=== PATIENT | female | born 1950 | race Two or more races ===

== ENCOUNTER 2020-02-24 05:52 | Day surgery (SDC) | payer OTHER ==
[~2020-02-24] VITALS: Ht 160 cm; Wt 81.6 kg
[~2020-02-24 05:52] MED LIST: ABILIFY5 MG PO; AMBIEN10 MG PO; ATIVAN1 MG PO; ATIVAN2 MG PO; CITALOPRAM HBR20 MG PO; COZAAR50 MG PO; DILTIAZEM ER120 M3; DILTIAZEM ER120 MG PO; DILTIAZEM HCL120 MG PO; FAMOTIDINE20 MG PO; HYDROCHLOROTHIA25 MG; HYOSCYAMINE0.125 M1 SL; HYZAAR 50-12.1 UDTAB PO; HYZAAR 50/12.51 TAB PO; LEVAQUIN750 MG PO; LEVOTHYROXINE25 MCG; LEVOTHYROXINE25 MCG PO; LORAZEPAM2 MG PO; MICRO-K 1010 MEQ PO; NAPROXEN500 MG PO; POM (MEDICAMENTO EN PO; PRISTIQ; PROVENTIL3 ML/2.5 M IH; SYNTHROID50 MCG PO; TUSSI-PRES LIQ120 ML PO
[2020-02-25] MEDS ORDERED: COZAAR25 MG PO (08:12)
== END 2020-02-25 08:00 | disposition home or self-care (01) ==
LOC: CIR.AMB 05:52 → SURH 12:27 → O/R 12:27 → CIR.AMB 12:27 → SURH 13:38 → O/R 13:38 → CIR.AMB 02-25 08:00 → SURH 02-25 10:41 → O/R 02-25 10:41
PROVIDERS: ATTEND Specialist
DX: C50.812 Malignant neoplasm of overlapping sites of left female breast (principal); Z17.0 Estrogen receptor positive status [ER+]

== ENCOUNTER 2021-07-15 10:34 | Emergency (ER) | payer OTHER ==
[~2021-07-15] VITALS: Ht 160 cm; Wt 77.1 kg
[~2021-07-15 10:34] MED LIST changes: +COZAAR25 MG PO
[2021-07-15] MEDS ORDERED: CITALOPRAM20 MG/10 M PO (10:53)
[2021-07-15] MEDS ORDERED: LETROZOLE2.5 MG PO (10:54)
[2021-07-15] MEDS ORDERED: AMIODARONE HCL100 MG PO (10:55)
[2021-07-15] MEDS ORDERED: GLUMETZA500 MG (10:55)
== END 2021-07-15 13:00 | disposition home or self-care (01) ==
LOC: ER 10:34
DX: S00.83XA Contusion of other part of head, initial encounter (principal); S20.214A Contusion of middle front wall of thorax, initial encounter; R07.89 Other chest pain; W18.09XA Striking against other object with subsequent fall, initial encounter; Y93.89 Activity, other specified; Y92.091 Bathroom in other non-institutional residence as the place of occurrence of the external cause; Y99.8 Other external cause status

== ENCOUNTER 2023-10-17 09:35 | Inpatient (IN) | payer OTHER ==
[~2023-10-17] VITALS: Ht 160 cm; Wt 72.6 kg
[~2023-10-17 09:35] MED LIST changes: +AMIODARONE HCL100 MG PO; +CITALOPRAM20 MG/10 M PO; +GLUMETZA500 MG; +LETROZOLE2.5 MG PO
--- NOTE | 2023-10-17 10:17 | NUR ---
SE RECIBE PACIENET ALERTA Y ORIENTADA X3 ACUDE A LA VIJAYA DE EMERGENCINAS POR DOLOR ADBOMINAL QUE IRRADIA HACIA EL AREA PELVICO, NAUSEAS. SE OBSERVA ABDOMEN DISTENDIDO Y SE PALPA MASA EN ABDOMEN DE MAC LADO IZQ. SE MIDEN S/V Y SE UBICA.
[2023-10-17] MEDS ORDERED: METHYLPREDNISOLONE SOD SUCC 40 MG VIAL IV ONE (11:00)
[2023-10-17] MEDS ORDERED: DIPHENHYDRAMINE HCL 50 MG/ML VIAL 1ML IV ONE (11:00)
[2023-10-17] MEDS ORDERED: FAMOtidine 10 MG/ML (4ML VIAL) IV ONE (11:00)
[2023-10-17] MEDS ORDERED: MORPHINE SULFATE 2 MG/ML CARTRIDGE IV ONE (11:00)
--- NOTE | 2023-10-17 12:18 | NUR ---
PACIENTE ALERTA Y ORIENTADA X3, EVALUADA POR LA DRA. MONREAL. RN AGUIAR EDUCA A PACIENTE SOBRE PROCEDIMIENTO A LLEVAR A CABO, VERBALIZA ENTENDER. SE EJECUTAN ORDENES BAJO MEDIDAS ASEPTICAS.
[2023-10-17 12:24] LABS: HEMATOCRIT 37.9 % (36.0-45.00); HEMOGLOBIN 12.8 g/dL (12.0-15.00); MEAN CELL VOLUME 82.2 fL (80.00-100.00); MEAN CORPUSCULAR HEMOGLOBIN 27.8 pg (27.00-32.0); MEAN CORPUSCULAR HGB CONC 33.8 g/dl (32.0-36.0); PLATELET COUNT 289 K/uL (150-450); RED BLOOD COUNT 4.61 M/uL (4.00-6.00); RED CELL DISTRIBUTION WIDTH 13.6 % (11.5-14.5)
[2023-10-17 12:57] LABS: ALBUMIN 3.1 gm/dL (3.4-5.0); BILIRUBIN TOTAL 0.58 mg/dL (0.3-1.2); CALCIUM 9.3 mg/dL (8.5-10.1); CREATININE SERUM 0.67 mg/dL (0.55-1.02); GFR 86.52; GLOBULINA 4.2 G/DL (2.4-3.5); POTASSIUM 3.58 mEq/L (3.5-5.1); TOTAL PROTEIN 7.3 gm/dL (6.4-8.2)
[2023-10-17 13:39] LABS: PH,URINE 5.5 (5.0-8.0); URINE APPEARANCE Clear; URINE BILIRRUBIN Negative (NEGATIVE); URINE BLOOD Negative; URINE COLOR Yellow; URINE LEUKOCYTE Negative; URINE NITRATE Negative; URINE PROTEIN Negative (NEGATIVE); URINE UROBILINOGEN 0.2 E.U./dl
[2023-10-17 13:43] LABS: URINE BACTERIA 25.1 uL (0.0-1933); URINE EPITHELIAL CELLS 3.5 uL (0.0-38.8); URINE WBC 5.3 uL (0.0-23.2)
[2023-10-17] MEDS ORDERED: INSULIN REGULAR, HUMAN 1,000 UNIT/10 ML UNITS SUBCUTANEO ONE ×2 (13:45→14:00)
[2023-10-17 13:49] LABS: URINE GLUCOSE >=1000 MG/DL (NEGATIVE); URINE RBC 0.4 uL (0.0-20.8)
--- NOTE | 2023-10-17 15:35 | NUR ---
SE RECIBE PTE ALERTA Y ORIENTADA X3 EN CAMA CON BARANDAS ELEVADAS. SE ORIENTA SOBRE CONTINUIDAD DE [facility]. PENDIENTE LECTURA DE CT. PTE CON SONDA URINARIA BAJANDO A GRAVEDAD.
[2023-10-17 18:48] LABS: ALBUMIN 3.6 gm/dL (3.4-5.0); BILIRUBIN TOTAL 0.32 mg/dL (0.3-1.2); BILIRUBIN,CONJUGATED 0.11 mg/dL (0.0-0.2); BILIRUBIN,UNCONJUGATED 0.21 mg/dL (0.0-0.6); TOTAL PROTEIN 8.5 gm/dL (6.4-8.2)
[2023-10-17] MEDS ORDERED: 0.9 % SODIUM CHLORIDE 1,000 ML IV SCH (20:00)
[2023-10-17] MEDS ORDERED: ONDANSETRON HCL 4 MG in 0.9 % SODIUM CHLORIDE 50 ML IV PRN (20:15)
[2023-10-17] MEDS ORDERED: DEXTROSE 50 % IN WATER 0.5 G/ML DISP.SYRIN IV PRN (20:15)
[2023-10-17] MEDS ORDERED: ACETAMINOPHEN 500 MG GEL..CAP PO PRN (20:15)
[2023-10-17] MEDS ORDERED: INSULIN LISPRO 1,000 UNIT/10 ML UNITS SUBCUTANEO PRN (20:15)
[2023-10-17] MEDS ORDERED: HYOSCYAMINE SULFATE 0.125 MG TAB.SUBL PO ONE (20:15)
[2023-10-17] MEDS ORDERED: LORazepam 1 MG TABLET PO SCH (21:00)
[2023-10-17 22:01] LABS: INR 1.04; PARTIAL THROMBOPLASTIN TIME 28.4 SECONDS (22.0-34.0); PROTHROMBIN TIME 10.9 SECONDS (9.0-11.5)
[2023-10-18] MEDS ORDERED: CEFTRIAXONE SODIUM 2,000 MG in 0.9 % SODIUM CHLORIDE 100 ML IV SCH (09:00)
[2023-10-18] MEDS ORDERED: FAMOTIDINE/PF 20 MG in 0.9 % SODIUM CHLORIDE 8 ML IV PUSH SCH (09:00)
[2023-10-19] MEDS ORDERED: KETOROLAC TROMETHAMINE 30 MG VIAL IV SCH (12:01)
[2023-10-20] MEDS ORDERED: ENALAPRILAT DIHYDRATE 1.25 MG/ML VIAL IV ONE ×2 (17:53→18:45)
[2023-10-21] MEDS ORDERED: LOSARTAN POTASSIUM 50 MG TABLET PO SCH (11:21)
[2023-10-21] MEDS ORDERED: ENALAPRILAT DIHYDRATE 1.25 MG/ML VIAL IV PRN (15:15)
[2023-10-21] MEDS ORDERED: AMLODIPINE BESYLATE 10 MG TABLET PO STA (15:17)
[2023-10-22] MEDS ORDERED: AMLODIPINE BESYLATE 10 MG TABLET PO SCH (09:00)
== END 2023-10-22 13:19 | disposition home or self-care (01) | DRG 439 ==
LOC: ER 09:35 → MEDI 20:12
PROVIDERS: General Practice; ADMIT Internal Medicine; ATTEND Internal Medicine
PROC: BW21YZZ Computerized Tomography (CT Scan) of Abdomen and Pelvis using Other Contrast (ICD-10-PCS; principal; 2023-10-17)
PROC: BF37YZZ Magnetic Resonance Imaging (MRI) of Pancreas using Other Contrast (ICD-10-PCS; 2023-10-17)
PROC: BW40ZZZ Ultrasonography of Abdomen (ICD-10-PCS; 2023-10-19)
DX: K86.2 Cyst of pancreas (principal); N39.0 Urinary tract infection, site not specified; D13.6 Benign neoplasm of pancreas; I10 Essential (primary) hypertension

== ENCOUNTER 2024-01-21 10:43 | Inpatient (IN) | payer OTHER ==
[~2024-01-21] VITALS: Ht 157.5 cm; Wt 72.6 kg
--- NOTE | 2024-01-21 10:50 | NUR ---
PACIENTE ALERTA Y ORIENTADA X 3. REFIERE DOLOR CORPORAL, DE EDSON, DE PECHO Y CANSANCIO DESDE RICHARD.
[2024-01-21] MEDS ORDERED: DILTIAZEM HCL 25 MG/5 ML VIAL IV ONE (11:15)
[2024-01-21 12:11] LABS: HEMATOCRIT 39.3 % (36.0-45.00); HEMOGLOBIN 13.5 g/dL (12.0-15.00); MEAN CELL VOLUME 81.8 fL (80.00-100.00); MEAN CORPUSCULAR HEMOGLOBIN 28.2 pg (27.00-32.0); MEAN CORPUSCULAR HGB CONC 34.5 g/dl (32.0-36.0); PLATELET COUNT 254 K/uL (150-450); RED CELL DISTRIBUTION WIDTH 13.6 % (11.5-14.5)
--- NOTE | 2024-01-21 12:15 | NUR ---
PTE EVALUADA POR EL SONU JULES QUIEN ORDENA TRATMAIENTO LA CUAL SE EJECUTA SE CONCETA EN MONITOR CARDIACO Y OXIEMTRIA ,SE LE ADMISTRA CARDIACEM 25 MG IV . SE MANTIENE BAJO OBSERVACION.
[2024-01-21 12:16] LABS: PH,URINE 5.5 (5.0-8.0); URINE APPEARANCE Clear; URINE BILIRRUBIN Negative (NEGATIVE); URINE BLOOD Negative; URINE COLOR Yellow; URINE LEUKOCYTE Small; URINE NITRATE Negative; URINE PROTEIN 30 (NEGATIVE)
[2024-01-21 12:20] LABS: URINE BACTERIA 99.5 uL (0.0-1933); URINE EPITHELIAL CELLS 10.5 uL (0.0-38.8); URINE RBC 2.5 uL (0.0-20.8); URINE WBC 163.6 uL (0.0-23.2)
[2024-01-21 12:24] LABS: URINE GLUCOSE >=1000 MG/DL (NEGATIVE)
[2024-01-21 12:55] LABS: INR 1.06; PARTIAL THROMBOPLASTIN TIME 26.9 SECONDS (22.0-34.0); PROTHROMBIN TIME 11.1 SECONDS (9.0-11.5)
[2024-01-21 13:39] LABS: CALCIUM 8.9 mg/dL (8.5-10.1); CREATININE SERUM 0.69 mg/dL (0.55-1.02); GFR 83.63; POTASSIUM 3.75 mEq/L (3.5-5.1)
[2024-01-21 13:51] LABS: DIGOXIN 0.2 ng/ml (0.8-2.0)
[2024-01-21] MEDS ORDERED: APIXABAN 5 MG TABLET PO SCH ×2 (18:13→19:06)
[2024-01-21] MEDS ORDERED: 0.9 % SODIUM CHLORIDE 1,000 ML IV SCH (18:15)
[2024-01-21] MEDS ORDERED: DILTIAZEM HCL 125 MG in 0.9 % SODIUM CHLORIDE 100 ML IV SCH (18:15)
[2024-01-21] MEDS ORDERED: CLONAZEPAM 1 MG TABLET PO SCH (18:20)
[2024-01-21] MEDS ORDERED: DEXTROSE 50 % IN WATER 0.5 G/ML DISP.SYRIN IV PRN (18:30)
[2024-01-21] MEDS ORDERED: ACETAMINOPHEN 500 MG GEL..CAP PO PRN (18:30)
[2024-01-21] MEDS ORDERED: INSULIN LISPRO 1,000 UNIT/10 ML UNITS SUBCUTANEO PRN (18:30)
[2024-01-21 21:15] LABS: CALCIUM 9.5 mg/dL (8.5-10.1); CREATININE SERUM 0.73 mg/dL (0.55-1.02); GFR 78.37; POTASSIUM 3.43 mEq/L (3.5-5.1)
[2024-01-22] MEDS ORDERED: METOPROLOL TARTRATE 25 MG TABLET PO SCH (01:00)
[2024-01-22] MEDS ORDERED: APIXABAN 5 MG TABLET PO SCH (09:00)
[2024-01-22] MEDS ORDERED: ATORVASTATIN CALCIUM 40 MG TABLET PO SCH (09:00)
[2024-01-22] MEDS ORDERED: FAMOTIDINE/PF 20 MG in 0.9 % SODIUM CHLORIDE 8 ML IV PUSH SCH (09:00)
[2024-01-22] MEDS ORDERED: POTASSIUM CHLORIDE 10 MEQ CAPSULE PO NR (10:15)
[2024-01-22] MEDS ORDERED: ENALAPRILAT DIHYDRATE 1.25 MG/ML VIAL IV PRN (22:00)
[2024-01-23 07:02] LABS: CALCIUM 8.6 mg/dL (8.5-10.1); CREATININE SERUM 0.62 mg/dL (0.55-1.02); GFR 94.62; POTASSIUM 3.7 mEq/L (3.5-5.1)
[2024-01-23] MEDS ORDERED: FAMOTIDINE/PF 20 MG in 0.9 % SODIUM CHLORIDE 8 ML IV PUSH SCH (21:00)
== END 2024-01-23 18:49 | disposition home or self-care (01) | DRG 310 ==
LOC: ER 10:43 → ICU-2 18:44 → ICU 18:44
PROVIDERS: Emergency Medicine; General Practice; ADMIT Internal Medicine; ATTEND Internal Medicine
PROC: B24BZZZ Ultrasonography of Heart with Aorta (ICD-10-PCS; principal; 2024-01-21)
DX: I48.20 Chronic atrial fibrillation, unspecified (principal); I11.9 Hypertensive heart disease without heart failure; E78.5 Hyperlipidemia, unspecified; E03.9 Hypothyroidism, unspecified

== ENCOUNTER 2024-09-14 11:17 | Emergency (ER) | payer OTHER ==
[~2024-09-14] VITALS: Ht 160 cm; Wt 76.2 kg
[2024-09-14] MEDS ORDERED: TRAMADOL HCL 50 MG TABLET PO ONE (16:30)
[2024-09-14 17:02] LABS: HEMOGLOBIN 13.4 g/dL (12.0-15.00); MEAN CELL VOLUME 80.9 fL (80.00-100.00); MEAN CORPUSCULAR HEMOGLOBIN 27.8 pg (27.00-32.0); MEAN CORPUSCULAR HGB CONC 34.3 g/dl (32.0-36.0); PLATELET COUNT 321 K/uL (150-450); RED BLOOD COUNT 4.81 M/uL (4.00-6.00); RED CELL DISTRIBUTION WIDTH 14.4 % (11.5-14.5)
[2024-09-14 17:23] LABS: INR 1.02; PARTIAL THROMBOPLASTIN TIME 25.3 SECONDS (22.0-34.0); PROTHROMBIN TIME 11.1 SECONDS (9.0-11.5)
[2024-09-14 17:29] LABS: ALBUMIN 3.6 gm/dL (3.4-5.0); BILIRUBIN TOTAL 0.35 mg/dL (0.3-1.2); CALCIUM 9.5 mg/dL (8.5-10.1); CREATININE SERUM 0.8 mg/dL (0.55-1.02); GFR 70.31; GLOBULINA 4.4 G/DL (2.4-3.5); POTASSIUM 3.27 mEq/L (3.5-5.1)
[2024-09-14 18:05] LABS: PH,URINE 5.5 (5.0-8.0); URINE APPEARANCE Clear; URINE BILIRRUBIN Negative (NEGATIVE); URINE BLOOD Negative; URINE COLOR Dark Yellow; URINE KETONE Negative (NEGATIVE); URINE LEUKOCYTE Negative; URINE NITRATE Negative; URINE PROTEIN Trace (NEGATIVE)
[2024-09-14 18:11] LABS: URINE EPITHELIAL CELLS 53.8 uL (0.0-38.8); URINE WBC 27.2 uL (0.0-23.2)
[2024-09-14 18:44] LABS: URINE CAST 0.73 uL (0.0-1.40); URINE GLUCOSE 500 MG/DL (NEGATIVE)
[2024-09-14 19:07] LABS: URINE CRYSTALS MANY /HPF
== END 2024-09-14 22:01 | disposition home or self-care (01) ==
LOC: ER 11:20
PROVIDERS: General Practice
DX: R10.32 Left lower quadrant pain (principal); Z91.041 Radiographic dye allergy status; I49.8 Other specified cardiac arrhythmias; I10 Essential (primary) hypertension; Z85.3 Personal history of malignant neoplasm of breast; E11.9 Type 2 diabetes mellitus without complications; Z79.84 Long term (current) use of oral hypoglycemic drugs; K57.30 Diverticulosis of large intestine without perforation or abscess without bleeding

== ENCOUNTER 2024-09-25 06:03 | Day surgery (SDC) | payer OTHER ==
[2024-09-24 13:53] LABS: HEMATOCRIT 40.4 % (36.0-45.00); HEMOGLOBIN 13.6 g/dL (12.0-15.00); MEAN CELL VOLUME 81.5 fL (80.00-100.00); MEAN CORPUSCULAR HEMOGLOBIN 27.4 pg (27.00-32.0); MEAN CORPUSCULAR HGB CONC 33.6 g/dl (32.0-36.0); PLATELET COUNT 316 K/uL (150-450); RED BLOOD COUNT 4.96 M/uL (4.00-6.00); RED CELL DISTRIBUTION WIDTH 14.1 % (11.5-14.5)
[2024-09-24 14:37] LABS: ALBUMIN 3.6 gm/dL (3.4-5.0); BILIRUBIN TOTAL 0.23 mg/dL (0.3-1.2); CALCIUM 9.6 mg/dL (8.5-10.1); CREATININE SERUM 0.78 mg/dL (0.55-1.02); GFR 72.39; GLOBULINA 4.4 G/DL (2.4-3.5); INR 1.01; PARTIAL THROMBOPLASTIN TIME 26.5 SECONDS (22.0-34.0); POTASSIUM 3.57 mEq/L (3.5-5.1)
[2024-09-25] MEDS ORDERED: CIPROFLOXACIN IN 5 % DEXTROSE 400 MG/200 ML PIGGYBAG IV ONE (11:52)
[2024-09-25] MEDS ORDERED: IOVERSOL 320 MG/ML - 50 ML VIAL IV ONE (15:57)
== END 2024-09-25 15:45 | disposition home or self-care (01) ==
LOC: CIR.AMB 06:03
PROVIDERS: ATTEND Internal Medicine
DX: K86.2 Cyst of pancreas (principal); K31.7 Polyp of stomach and duodenum; I10 Essential (primary) hypertension; E11.9 Type 2 diabetes mellitus without complications; E03.8 Other specified hypothyroidism; J45.909 Unspecified asthma, uncomplicated; Z91.041 Radiographic dye allergy status

== ENCOUNTER 2024-09-25 07:51 | Outpatient (CLI) | payer OTHER ==
[2024-09-25 09:12] LABS: CALCIUM 9.5 mg/dL (8.5-10.1); CREATININE SERUM 0.64 mg/dL (0.55-1.02); GFR 90.96; POTASSIUM 3.75 mEq/L (3.5-5.1)
== END 2024-09-25 07:54 | disposition home or self-care (01) ==
LOC: LAB 07:51
PROVIDERS: ATTEND Internal Medicine
DX: E11.9 Type 2 diabetes mellitus without complications (principal)